=== PATIENT | female | born 1955 | race Caucasian/White ===

== ENCOUNTER → 2016-12-02 | Outpatient (CLI) | payer OTHER ==
[~2016-12-02] MED LIST: CHOL400T PO; FISHOIL PO; FRN; LISI-461 PO; MELO15TA4 PO; METF850T PO; SYN75 PO
[2016-12-02 13:55] LABS: ESTIMATED AVERAGE GLUCOSE 148 mg/dl; HA1C FLAG Normal (Normal)
[2016-12-02 14:13] LABS: BLOOD UREA NITROGEN 15 mg/dl (7-18); BUN/CREATININE RATIO 14.5 (10-20); CALCIUM 9.3 mg/dl (8.5-10.1); CARBON DIOXIDE 28 mmol/L (21-32); CHLORIDE 103 mmol/L (98-107); GLUCOSE 172 mg/dl (70-99); POTASSIUM 4.2 mmol/L (3.5-5.1); SODIUM 140 mmol/L (136-145)
== END | disposition home or self-care (01) ==
LOC: C.LABPVFM 10:54
PROVIDERS: ATTEND Family Medicine
DX: E11.9 Type 2 diabetes mellitus without complications (principal)

== ENCOUNTER → 2017-06-15 | Outpatient (CLI) | payer OTHER ==
--- NOTE | 2017-06-15 13:09 | MAMMOGRAPHY REPORT ---
BILATERAL DIGITAL SCREENING MAMMOGRAM WITH CAD: 06/15/2017 CLINICAL HISTORY: Routine screening. Patient has no complaints. TECHNIQUE: Bilateral CC, MLO and XCCL views were obtained. Current study was also evaluated with a C omputer Aided Detection (CAD) system. COMPARISON: Comparison is made to exams dated: 06/12/2016 mammogram, 05/07/2015 mammogram, 04/02/2014 m ammogram, 03/08/2013 mammogram, 03/07/2012 mammogram, and 03/04/2011 mammogram - [facility] enter. BREAST COMPOSITION: The tissue of both breasts is heterogeneously dense, which may obscure small mas ses. FINDINGS: There are scattered and grouped benign-appearing microcalcifications in each breast, which are stable compared to prior mammograms. There are also a few benign round calcifications. However , there is a possible new faint cluster of microcalcifications in the 9:00 middle to anterior right b reast, for which additional spot magnification views are recommended. No other suspicious mass, architectural distortion or developing asymmetry is seen bilaterally. IMPRESSION: ACR BI-RADS CATEGORY 0: INCOMPLETE EVALUATION: NEED ADDITIONAL IMAGING EVALUATION The possible new faint cluster of microcalcifications in the 9:00 right breast needs additional evalu ation. The patient will be called to schedule an appointment. Approximately 10% of breast cancers are not detected with mammography. A negative mammographic report should not delay biopsy if a clinically suggestive mass is present. Elisa Allan M.D. ay/:06/15/2017 12:03:15 Cloth Printing Inspector: Shirley SUAREZ(Peter)(Anne)(BD), [facility] letter sent: Addl Imaging 0 BI-RADS Code: ACR BI-RADS Category 0: Incomplete Evaluation: Need Additional Imaging Evaluation
== END | disposition home or self-care (01) ==
LOC: C.MAMM 09:27
PROVIDERS: ATTEND Family Medicine
DX: R92.0 Mammographic microcalcification found on diagnostic imaging of breast (principal)

== ENCOUNTER → 2017-06-22 | Outpatient (CLI) | payer OTHER ==
--- NOTE | 2017-06-22 13:56 | MAMMOGRAPHY REPORT ---
UNILATERAL RIGHT DIGITAL DIAGNOSTIC MAMMOGRAM: 06/22/2017 CLINICAL HISTORY: Callback from screening mammography for a possible grouping of microcalcifications in the right breast. TECHNIQUE: Spot magnification right CC and ML views were obtained. COMPARISON: Comparison is made to exams dated: 06/15/2017 mammogram, 06/12/2016 mammogram, 05/07/2015 ma mmogram, 04/02/2014 mammogram, 03/08/2013 mammogram, and 03/07/2012 mammogram - [facility] [address] nter. BREAST COMPOSITION: The tissue of the right breast is heterogeneously dense, which may obscure small masses. FINDINGS: There is faint grouping of punctate microcalcifications in a linear distribution in the la teral, middle to anterior right breast, best seen on the spot magnification CC view. This grouping o f microcalcifications measures 4 mm in length. No obvious associated mass or architectural distortio n. They are thought to project superiorly based on the spot magnification ML view. They are indeter minate and further evaluation with a stereotactic guided biopsy is recommended. No other suspicious grouping or clustered microcalcifications are seen. IMPRESSION: ACR BI-RADS CATEGORY 4B: INTERMEDIATE SUSPICION FOR MALIGNANCY Right breast stereotactic guided biopsy is recommended for a faint 4 mm grouping of punctate microcal cifications in a linear distribution in the lateral, middle to anterior breast. These results and recommendations were discussed with the patient at the time of the exam. She jeana rocha scheduled the biopsy prior to leaving our department. Approximately 10% of breast cancers are not detected with mammography. A negative mammographic report should not delay biopsy if a clinically suggestive mass is present. Elisa Allan M.D. ay/:06/22/2017 13:03:08 Orange Grower: Sadaf HURTADO)(Anne), [facility] letter sent: Abnormal 4/5 BI-RADS Code: ACR BI-RADS Category 4B: Intermediate Suspicion For Malignancy
== END | disposition home or self-care (01) ==
LOC: C.MAMM 10:06
PROVIDERS: ATTEND Family Medicine
DX: R92.0 Mammographic microcalcification found on diagnostic imaging of breast (principal)

== ENCOUNTER → 2017-06-28 | Outpatient (CLI) | payer OTHER ==
--- NOTE | 2017-06-28 13:33 | Discharge Instructions ---
Discharge Instructions Procedure Procedure Date: Jun 28, 2017. Reason for visit: Right Calcs. Discharge Discharge Date: Jun 28, 2017. Discharge Diagnosis: post right breast stereotactic guided biopsy Medications Restart Stopped Medication(s): May restart Meloxicam today Instructions Activity Recommendations: Additional Limitations (see below) Return to School/Work: no limitations Recommended Home Diet: No Limitations Provider Instructions: ACTIVITY RECOMMENDATIONS: * No lifting, pushing, pulling or exercising the affected side for three days. RETURN TO SCHOOL/WORK: * You may return to work/school after the procedure, but do not perform any strenuous activities for 24 to 48 hours. MEDICATIONS: * Tylenol (two 325 mg) every four to six hours if needed for mild pain (if not allergic to Tylenol). DIET: * Resume previous diet. SPECIAL CARE INSTRUCTIONS: * Keep biopsy site dry for 24 hours. May shower after 24 hours, but do not soak (bathe) incision. * May remove Tegaderm (plastic patch) tomorrow AFTER showering. * Leave the steri-strips on for one week. Allow the steri-strips to fall off by themselves. If not off after one week, you may remove them. You may place a Bandaid crosswise over the strips, if desired. * Apply ice 10 minutes on and 10 minutes off as needed. * Wear a bra at bedtime to sleep more comfortably for 2-3 days. * Your referring physician should have the results after approximately 5 to 7 business days. * Call for unusual bleeding, fever, drainage, etc or if you have any questions call [phone] during normal business hours or after hours call Dr Allan, . FOLLOW UP VISIT: Follow-up with Referring Physician as scheduled. Allergies Coded Allergies: Nitrofurantoin (Verified Allergy, Severe, ANAPHYLAXIS, 02/12/14) Sulfa Drugs (Verified Allergy, Severe, HIVES, 02/12/14) Adhesives (Verified Allergy, Intermediate, skin peels, 03/08/14) Penicillins (Verified Allergy, Unknown, HIVES, VOMITING, 02/12/14) Rin Beebe Recommendations: Call your doctor if: * Temperature above 101 degrees * Pain not relieved by pain medicine ordered * There is increased drainage or redness from any incision * You have any unanswered questions or concerns. Your Doctors Instructions noted above were prepared by provider Elisa Allan. Patient Signature Section: Patient Instructions Signature Page Zhanna De Jesus Patient (or Guardian) Signature/Date: I have read and understand the instructions given to me by my caregivers. Caregiver/RN/Doctor Signature/Date: The above-named patient and/or guardian has received patient instructions on this date. + Original Patient Signature Page (only) stays with chart. Please make copy for patient.
--- NOTE | 2017-06-28 14:32 | MAMMOGRAPHY REPORT ---
STEREOTACTIC GUIDED BIOPSY RIGHT BREAST: 06/28/2017 CLINICAL HISTORY: Indeterminate linear punctate microcalcifications in the 6:00 to 7:00 anterior righ t breast. Patient presented for stereotactic guided biopsy. COMPARISON: Comparison is made to exams dated: 06/22/2017 mammogram, 06/15/2017 mammogram, 06/12/2016 gurmeet mogram, 05/07/2015 mammogram, 04/02/2014 mammogram, and 03/08/2013 mammogram - [facility]. PATIENT CONSENT: After explaining the risks, benefits and alternatives of the procedure to the zachary valente, informed consent was obtained both verbally and in writing. Specific risks include: Bleeding, inf ection, puncture of adjacent structure, pain, nontarget biopsy, sampling error, metal allergy and med ication reaction. PROCEDURE DESCRIPTION: A time-out was performed and the right breast was confirmed as the site of bio psy. The patient was placed prone on the stereotactic biopsy table and the breast was placed in CC fr om below compression. A supervisor boat outfitting image was obtained that demonstrated the clustered microcalcifications in question. They are amenable to sterotactic biopsy. Then +15 and -15 stereo pair images were obt ained. The calcifications were targeted utilizing the coordinates obtained by the computer. The skin was prepped with Betadine. 1% Lidocaine with and without epinipherine was administered as local anes thesia. A small skin incision was made. Through the incision, the needle was inserted to the depth d etermined by the computer. 11 samples were obtained using a [employer] 9-gauge vacuum-assisted biops y device. The specimen radiograph demonstrated several operations support representative microcalcifications, therefore, a metallic marker was placed at the biopsy site. There was no immediate complication. Hemostasis was achieved after several minutes of manual compression. The samples were sent to pathology in two gaby ropriately labeled containers, "with calcifications" and "without calcifications". All of the samples were obtained from the same single biopsy site. Postprocedure CC and ML views of the right breast were obtained. There is a new dumbbell-shaped met allic biopsy marker and no significant hematoma in upper outer anterior right breast, at the site of the biopsied linear punctate microcalcifications. IMPRESSION: STEREOTACTIC GUIDED BIOPSY Status post right breast stereotactic guided biopsy of linear punctate microcalcifications in the upp er outer anterior right breast, with biopsy marker placed at the site. The patient will receive notification of the biopsy results from her referring physician. Elisa Allan M.D. ay/:06/28/2017 13:41:41 Attending Technologist: Meg Reagan RT(R)(M), [facility] Vascular Surgeon: Candida Chavarria RT(R)(M), [facility]
--- NOTE | 2017-06-28 14:32 | MAMMOGRAPHY REPORT ---
UNILATERAL RIGHT DIGITAL DIAGNOSTIC MAMMOGRAM: 06/28/2017 CLINICAL HISTORY: Status post right breast stereotactic guided biopsy of linear punctate microcalcifi cations in the upper outer anterior right breast. Please refer the report from right breast stereotactic biopsy performed at the same time for full det ail. IMPRESSION: POST PROCEDURE IMAGING FOR MARKER PLACEMENT Please refer the report from right breast stereotactic biopsy performed at the same time for full det ail. Approximately 10% of breast cancers are not detected with mammography. A negative mammographic report should not delay biopsy if a clinically suggestive mass is present. Elisa Allan M.D. ay/:06/28/2017 13:42:21 Attending Technologist: Meg Reagan RT(R)(M), [facility] Linux System Engineer: Candida Chavarria RT(R)(M), [facility] BI-RADS Code: Post Procedure Imaging For Marker Placement
== END | disposition home or self-care (01) ==
LOC: C.MAMM 12:21
PROVIDERS: ATTEND Family Medicine
DX: R92.0 Mammographic microcalcification found on diagnostic imaging of breast (principal); D24.1 Benign neoplasm of right breast

== ENCOUNTER → 2017-07-27 | Outpatient (CLI) | payer OTHER ==
[2017-07-27 13:13] LABS: ESTIMATED AVERAGE GLUCOSE 151 mg/dl; HA1C FLAG Normal (Normal)
[2017-07-27 13:40] LABS: BLOOD UREA NITROGEN 14 mg/dl (7-18); BUN/CREATININE RATIO 15.8 (10-20); CALCIUM 10.1 mg/dl (8.5-10.1); CARBON DIOXIDE 28 mmol/L (21-32); CHLORIDE 102 mmol/L (98-107); GLUCOSE 155 mg/dl (70-99); POTASSIUM 4.3 mmol/L (3.5-5.1); SODIUM 137 mmol/L (136-145)
== END | disposition home or self-care (01) ==
LOC: C.LABPVFM 09:53
PROVIDERS: ATTEND Family Medicine
DX: E03.9 Hypothyroidism, unspecified (principal); E11.9 Type 2 diabetes mellitus without complications

== ENCOUNTER → 2017-12-15 | Outpatient (CLI) | payer OTHER | END | disposition home or self-care (01) | LOC: C.LABPVFM 09:31 | PROVIDERS: ATTEND Family Medicine | DX: N39.0 Urinary tract infection, site not specified (principal) ==

== ENCOUNTER → 2018-01-28 | Outpatient (CLI) | payer OTHER ==
[~2018-01-28] MED LIST changes: +MELO-84 PO; -MELO15TA4 PO
[2018-01-28 12:46] LABS: HEMOGLOBIN A1C 7.3 % (4.5-5.6)
[2018-01-28 12:58] LABS: ALBUMIN 3.9 gm/dl (3.4-5.0); ALT/SGPT 21 U/L (12-78); BLOOD UREA NITROGEN 14 mg/dl (7-18); CALCIUM 9.1 mg/dl (8.5-10.1); CARBON DIOXIDE 26 mmol/L (21-32); CHOLESTEROL 228 mg/dl (0-200); CREATININE 0.78 mg/dl (0.60-1.20); GLUCOSE 105 mg/dl (70-99); POTASSIUM 4.2 mmol/L (3.5-5.1); SODIUM 139 mmol/L (136-145)
[2018-01-28 13:01] LABS: ALKALINE PHOSPHATASE 84 U/L (45-117); AST/SGOT 10 U/L (15-37); LDL CHOLESTEROL CALCULATED 140 mg/dl; TOTAL PROTEIN 7.6 gm/dl (6.4-8.2)
== END | disposition home or self-care (01) ==
LOC: C.LABPVFM 08:05
PROVIDERS: ATTEND Family Medicine
DX: E03.9 Hypothyroidism, unspecified (principal)

== ENCOUNTER → 2018-06-23 | Outpatient (CLI) | payer OTHER ==
--- NOTE | 2018-06-23 15:12 | MAMMOGRAPHY REPORT ---
BILATERAL DIGITAL SCREENING MAMMOGRAM TOMOSYNTHESIS WITH CAD: 06/23/2018 CLINICAL HISTORY: Routine screening. Patient has no complaints. TECHNIQUE: The study was acquired using full field digital technology and interpreted from soft copy. Breast tomosynthesis in addition to standard 2D mammography was performed. Current study was also ev aluated with a Computer Aided Detection (CAD) system. COMPARISON: Comparison is made to exams dated: 06/15/2017 mammogram, 06/22/2017 mammogram, 06/12/2016 g[facility]meet mogram, 05/07/2015 mammogram, 04/02/2014 mammogram, and 06/28/2017 stereotactic biopsy - [facility]. BREAST COMPOSITION: The tissue of both breasts is heterogeneously dense, which may obscure small mass es. FINDINGS: No suspicious masses, calcifications, or areas of architectural distortion are noted in either breast . There has been no significant interval change compared to prior exams. Bilateral benign-appearing calcifications are not significantly changed. A biopsy clip is again noted within the right upper ou ter quadrant from prior benign stereotactic biopsy. Nodular focal asymmetry in the left posterior br east at approximately 12:00 is stable compared to multiple prior exams including the cc view from the 2010 exam and considered benign given long-term stability. IMPRESSION: ACR BI-RADS CATEGORY 2: BENIGN There is no mammographic evidence of malignancy. A 1 year screening mammogram is recommended.( 019) The patient will receive written notification of the results. Some breast cancers are not detected with mammography. A negative mammographic report should not ethel y biopsy if a clinically suggestive mass is present. Melissa Blancas M.D. ah/:06/23/2018 12:42:14 Resource Specialist Teacher: Meg Nguyen RT(R)(M), [facility] letter sent: Normal 1/2 BI-RADS Code: ACR BI-RADS Category 2: Benign
== END | disposition home or self-care (01) ==
LOC: C.MAMM 09:34
PROVIDERS: ATTEND Family Medicine
DX: Z12.31 Encounter for screening mammogram for malignant neoplasm of breast (principal)

== ENCOUNTER 2023-12-20 08:26 | Observation (INO) ==
--- NOTE | 2023-11-19 15:03 | PAT Medication Instructions ---
Medication Instructions Date of Service November 19, 2023 Home Medications Medication Instructions Recorded daowdafhrl-bqnvhjm-kknlpsoq 50 1 - 2 cap PO UD PRN Migraine 03/27/ mg-325 mg-40 mg capsule Headache #30 caps insulin glargine 100 unit/mL (3 30 unit (0.3 mL) subcut HS #15 mL 07/16/23 mL) subcutaneous pen (Lantus Solostar U-100 Insulin) dapagliflozin propanediol 5 mg 5 mg PO QAM #30 tabs 11/04/23 tablet (Farxiga) acetaminophen 500 mg tablet (Acetaminophen Extra Strength) 1,000 - 1,500 mg PO TID lgviqbwahy-khxhltr-ktmslajx 50 mg-325 mg-40 mg capsule 1 - 2 cap PO UD PRN insulin glargine 100 unit/mL (3 mL) subcutaneous pen (Lantus Solostar U-100 Insulin) 30 unit (0.3 mL) subcut HS dapagliflozin propanediol 5 mg tablet (Farxiga) 5 mg PO QAM Cbd Liquid Extract 1 dose PO HS Cbd W/ Turmeric 1 dose PO QAM amlodipine 10 mg tablet 10 mg PO QPM atorvastatin 20 mg tablet 20 mg PO QPM bisoprolol fumarate 5 mg tablet 5 mg PO QAM levothyroxine 75 mcg tablet 75 mcg PO QAM lisinopril 20 mg tablet 20 mg PO QAM meloxicam 15 mg tablet 15 mg PO QAM metformin 1,000 mg tablet 1,000 mg PO BID omega-3s 800 mg-dha 186.67 mg-epa 560 mg-fish-vit D3 8.33 mcg capsule (De3 Dry Eye [place] Benefits) 1 cap PO QAM psyllium husk 0.4 gram capsule (Metamucil) 0.4 g PO BID STOP 3 days before surgery dapagliflozin propanediol 5 mg tablet (Farxiga) 5 mg PO QAM ASK your surgeon for instructions meloxicam 15 mg tablet 15 mg PO QAM STOP taking 2 weeks before surgery (or as soon as possible if surgery is within 2 weeks) Cbd W/ Turmeric 1 dose PO QAM omega-3s 800 mg-dha 186.67 mg-epa 560 mg-fish-vit D3 8.33 mcg capsule (De3 [employer] [place] Benefits) 1 cap PO QAM DO NOT take the morning of surgery ebjcblbfff-bvpvoao-gsxhbbbf 50 mg-325 mg-40 mg capsule 1 - 2 cap PO UD PRN lisinopril 20 mg tablet 20 mg PO QAM metformin 1,000 mg tablet 1,000 mg PO BID psyllium husk 0.4 gram capsule (Metamucil) 0.4 g PO BID Take morning of surgery With a small sip of water, OTHERWISE NOTHING TO EAT OR DRINK AFTER MIDNIGHT: acetaminophen 500 mg tablet (Acetaminophen Extra Strength) 1,000 - 1,500 mg PO TID bisoprolol fumarate 5 mg tablet 5 mg PO QAM levothyroxine 75 mcg tablet 75 mcg PO QAM Take evening before surgery acetaminophen 500 mg tablet (Acetaminophen Extra Strength) 1,000 - 1,500 mg PO TID insulin glargine 100 unit/mL (3 mL) subcutaneous pen (Lantus Solostar U-100 Insulin) 30 unit (0.3 mL) subcut HS Cbd Liquid Extract 1 dose PO HS amlodipine 10 mg tablet 10 mg PO QPM atorvastatin 20 mg tablet 20 mg PO QPM metformin 1,000 mg tablet 1,000 mg PO BID psyllium husk 0.4 gram capsule (Metamucil) 0.4 g PO BID Other Notes If you have any questions please call us at [phone] or [phone] or or [phone]
--- NOTE | 2023-11-26 08:20 | Anesthesiology Consultation ---
Date of Service November 26, 2023 Assessment & Plan (1) Encounter for pre-operative examination: - check BSG am DOS. - Outpatient joint assessment: Patient is currently scheduled for inpatient pathway. If re-evaluated and patient/surgeon requests outpatient pathway, patient is not recommended candidate for outpatient joint program from anesthesia standpoint. Chart Review Chart Review: Acceptable Risk for Surgery and Patient seen in Pre Admission Testing Teaching & Discussion Pre-Anesthesia Teaching/Discussion Notes: Instructed NPO after midnight before surgery, except medications with 15 cc of water. Medication instructions provided according to the PAT guidelines. History Surgery Operation Date: 12/20/23 09:05 Proposed Procedures p Right Total Shoulder Arthroplasty Reverse - Aaron Mayer, Height/Weight Height: 4 ft 11 in Weight: 100.2 kg Allergies Allergy/AdvReac Type Severity Reaction Status Date / Time nitrofurantoin Allergy Severe Anaphylaxis Verified 11/19/23 09:07 Sulfa (Sulfonamide Allergy Severe hives/anaph Verified 11/19/23 09:07 Antibiotics) ylaxis adhesive Allergy Intermediate skin peels Verified 11/19/23 09:07 doxycycline Allergy Intermediate hives and Verified 11/19/23 09:07 vomitting Penicillins Allergy Unknown HIVES, Verified 11/19/23 09:07 VOMITING Medications Home Medications Medication Instructions Recorded Confirmed Last Taken acetaminophen 500 mg tablet 1,000 - 1,500 mg PO TID 09/20/18 11/19/23 09/26/18 08:00 (Acetaminophen Extra Strength) blood sugar diagnostic (OneTouch #10 ea 05/23/19 08/24/23 Unknown Ultra Blue Test Strip) lancets 33 gauge (OneTouch Delica #100 ea 05/23/19 08/24/23 Unknown Lancets) sxwbjwyloh-eytjxqf-gsabsvju 50 1 - 2 cap PO UD PRN Migraine 03/27/20 11/19/23 Unknown mg-325 mg-40 mg capsule Headache #30 caps insulin glargine 100 unit/mL (3 30 unit (0.3 mL) subcut HS #15 mL 07/16/23 11/19/23 Unknown mL) subcutaneous pen (Lantus Solostar U-100 Insulin) dapagliflozin propanediol 5 mg 5 mg PO QAM #30 tabs 11/04/23 11/19/23 Unknown tablet (Farxiga) Cbd Liquid Extract 1 dose PO HS 11/19/23 11/19/23 Unknown Cbd W/ Turmeric 1 dose PO QAM 11/19/23 11/19/23 Unknown atorvastatin 20 mg tablet 20 mg PO QPM 11/19/23 11/19/23 Unknown bisoprolol fumarate 5 mg tablet 5 mg PO QAM 11/19/23 11/19/23 Unknown levothyroxine 75 mcg tablet 75 mcg PO QAM 11/19/23 11/19/23 Unknown lisinopril 20 mg tablet 20 mg PO QAM 11/19/23 11/19/23 Unknown meloxicam 15 mg tablet 15 mg PO QAM 11/19/23 11/19/23 Unknown metformin 1,000 mg tablet 1,000 mg PO BID 11/19/23 11/19/23 Unknown omega-3s 800 mg-dha 186.67 mg-epa 1 cap PO QAM 11/19/23 11/19/23 Unknown 560 mg-fish-vit D3 8.33 mcg capsule (De3 Dry Eye [employer] Benefits) psyllium husk 0.4 gram capsule 0.4 g PO BID 11/19/23 11/19/23 Unknown (Metamucil) amlodipine 10 mg tablet 10 mg PO QPM #90 tabs 11/24/23 Unknown Past Medical History Medical History (Updated 11/26/23 @ 08:22 by Lala Borjas PA-C) Bulging lumbar disc chronic Degenerative disc disease Diabetes mellitus, type 2 IDDM GERD (gastroesophageal reflux disease) controlled, stable per pt History of COVID-03 May 2022: cold symptoms and loss sense of smell. denies hospitalization. no current issues Hyperlipidemia Hypertension controlled, stable per pt Hypothyroidism Migraine Scoliosis Spinal stenosis Patient denies h/o stroke, seizures, heart attack, heart failure, blood clots/DVTs or blood transfusions. Exercise / Class Metabolic Activity III < 4 Walking/Shop/Light housework (shortness of breath with regular activities ongoing x 5 yrs-notes recent improvement with intentional weight loss; denies chest discomfort) Past Family History Family History Father Family history of diabetes mellitus Family hx colonic polyps Mother Family history of diabetes mellitus Sister Breast cancer Other No family history of adverse response to anesthesia Denies family history of Ovarian cancer Prostate cancer Myocardial infarction Colorectal cancer Past Surgical History Surgical History History of carpal tunnel release bilt History of colonoscopy History of eye surgery Left upper inside eye lid, stye cut out. History of right breast biopsy benign History of tonsillectomy History of tooth extraction wisdom teeth History of total abdominal hysterectomy and bilateral salpingo-oophorectomy History of total left knee replacement (TKR) History of total right knee replacement (TKR) Past Anesthesia History No Family Hx of Anesthesia Complications ("wake up earlier than expected") and Other History of PONV History of PONV (denies needing scop patch) and Hx of Motion Sickness Social History Smoking Status: Never smoker Do You Dip or Chew Tobacco: No Hx Alcohol Use: Yes Alcohol type: hard liquor alcohol intake frequency: holidays/special occasions only Hx Substance Use: Yes (cbd (full spectrum) usage daily-advised) substance use type: does not use Last Used Substance Other:: 11/18/23 Review of Systems Snoring, denies witnessed apneas. Patient denies chest pain, shortness of breath, dyspnea on exertion, fever, chills, cough, wheezing, or palpitations. Physical Exam Vital Signs Vitals BP 135/75 P 68 TEMP 98 SP02 96% on RA RESP 18 Physical Patient resting comfortably in chair in no acute distress, alert and oriented, responding appropriately throughout visit Full cervical extension range of motion without pain TMD 3.5 finger breadths Mallampati Score 2 Dentition: three crowns; denies chipped or loose teeth, caps, implants or bridges Lungs: normal respiratory effort. Good air movement, clear throughout to auscultation, no adventitious breath sounds Cardiac: regular rate and rhythm, no murmurs noted Carotid arteries: negative bruit bilat Lab Results Anesthesia Preop Results Results Anesthesia Widget: WBC 7.16 K/ul (4.8-10.8) 11/26/23 Hgb 13.9 g/dl (12.0-16.0) 11/26/23 Hct 44.7 % (37.0-47.0) 11/26/23 Plt 340 K/uL (130-400) 11/26/23 Na 139 mmol/L (136-145) 11/26/23 K 3.9 mmol/L (3.5-5.1) 11/26/23 Cl 101 mmol/L (98-107) 11/26/23 CO2 29 mmol/L (21-32) 11/26/23 BUN 13 mg/dl (6-23) 11/26/23 Creat 0.86 mg/dl (0.6-1.2) 11/26/23 Glucose Level 243 mg/dl (70-99(Fasting)) H 11/26/23 PT 10.8 Seconds (9.0-12.0) 11/26/23 PTT 28 Seconds (21-31) 11/26/23 INR 1.0 (0.9-1.1) 11/26/23 HA1c 7.3 % (4.5-5.6) H 11/26/23 Blood Type O Positive 11/26/23 Antibody Screen NEGATIVE 11/26/23 Testing Electrocardiogram Date: 11/26/23 Sinus rhythm with PACs, rate [address] and T wave abnormality Chest X-Ray Date: 11/26/23 No acute cardiopulmonary findings.
--- NOTE | 2023-12-15 07:39 | History & Physical Report ---
Date of Service December 15, 2023 Assessment & Plan (1) Rotator cuff arthropathy of right shoulder: We will proceed with a right reverse shoulder arthroplasty. Postoperatively she will be placed in a sling and kept overnight in the hospital for postop medical management. She plans to have the hospital set up home health before discharge. History of Present Illness Chief Complaint: Cuff tear arthropathy right shoulder. Primary Care Provider: Valeria Francois MD Zhanna is a pleasant 68-year-old female who has been dealing with chronic increasing right shoulder pain. She still works [employer] and should be retiring in about 2 years. 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 She has an MRI, which shows chronic rotator cuff tearing and some osteo arthritis. She has had injections, which have only given her minimal relief. She has done too extensive physical therapy. Unfortunately, she is still dealing with a lot of right shoulder pain. After failing conservative treatment, she has elected proceed with a right reverse shoulder arthroplasty. Allergies Allergy/AdvReac Type Severity Reaction Status Date / Time nitrofurantoin Allergy Severe Anaphylaxis Verified 12/13/23 08:46 Sulfa (Sulfonamide Allergy Severe hives/anaph Verified 12/13/23 08:46 Antibiotics) ylaxis adhesive Allergy Intermediate skin peels Verified 12/13/23 08:46 doxycycline Allergy Intermediate hives and Verified 12/13/23 08:46 vomitting Penicillins Allergy Unknown HIVES, Verified 12/13/23 08:46 VOMITING Home Medications Medication Instructions Recorded Confirmed Type acetaminophen 500 mg tablet 1,000 - 1,500 mg PO TID 09/20/18 12/13/23 History (Acetaminophen Extra Strength) blood sugar diagnostic (OneTouch #10 ea 05/23/19 12/13/23 History Ultra Blue Test Strip) lancets 33 gauge (OneTouch Delica #100 ea 05/23/19 12/13/23 History Lancets) nwnxcoamio-mrqqxyl-ydyyvwej 50 1 - 2 cap PO UD PRN Migraine 03/27/20 12/13/23 Rx mg-325 mg-40 mg capsule Headache #30 caps insulin glargine 100 unit/mL (3 30 unit (0.3 mL) subcut HS #15 mL 07/16/23 12/13/23 Rx mL) subcutaneous pen (Lantus Solostar U-100 Insulin) dapagliflozin propanediol 5 mg 5 mg PO QAM #30 tabs 11/04/23 12/13/23 Rx tablet (Farxiga) Cbd Liquid Extract 1 dose PO HS 11/19/23 12/13/23 History Cbd W/ Turmeric 1 dose PO QAM 11/19/23 12/13/23 History atorvastatin 20 mg tablet 20 mg PO QPM 11/19/23 12/13/23 History bisoprolol fumarate 5 mg tablet 5 mg PO QAM 11/19/23 12/13/23 History levothyroxine 75 mcg tablet 75 mcg PO QAM 11/19/23 12/13/23 History lisinopril 20 mg tablet 20 mg PO QAM 11/19/23 12/13/23 History meloxicam 15 mg tablet 15 mg PO QAM 11/19/23 12/13/23 History metformin 1,000 mg tablet 1,000 mg PO BID 11/19/23 12/13/23 History omega-3s 800 mg-dha 186.67 mg-epa 1 cap PO QAM 11/19/23 12/13/23 History 560 mg-fish-vit D3 8.33 mcg capsule (De3 Dry Eye [place] Benefits) psyllium husk 0.4 gram capsule 0.4 g PO BID 11/19/23 12/13/23 History (Metamucil) amlodipine 10 mg tablet 10 mg PO QPM #90 tabs 11/24/23 12/13/23 Rx pen needle, diabetic 32 gauge x See Rx Instructions .Route 12/07/23 12/13/23 Rx 5/32" (Unifine Pentips) .COMPLEX #100 ea Past Med/Surg History Medical History History of COVID-03 May 2022: cold symptoms and loss sense of smell. denies hospitalization. no current issues Degenerative disc disease Spinal stenosis Scoliosis Hyperlipidemia Bulging lumbar disc chronic GERD (gastroesophageal reflux disease) controlled, stable per pt Hypothyroidism Diabetes mellitus, type 2 IDDM Migraine Hypertension controlled, stable per pt Surgical History History of colonoscopy History of eye surgery Left upper inside eye lid, stye cut out. History of right breast biopsy benign History of total abdominal hysterectomy and bilateral salpingo-oophorectomy History of carpal tunnel release bilt History of total left knee replacement (TKR) History of total right knee replacement (TKR) History of tooth extraction wisdom teeth History of tonsillectomy Family History Father Family history of diabetes mellitus Family hx colonic polyps Mother Family history of diabetes mellitus Sister Breast cancer Other No family history of adverse response to anesthesia Denies family history of Ovarian cancer Prostate cancer Myocardial infarction Colorectal cancer Social History Smoking Status: Never smoker Second Hand Exposure: No; Do You Dip or Chew Tobacco: No; Tobacco Cessation Education Requested by Patient: No Hx Alcohol Use: Yes Alcohol type: hard liquor Alcohol Intake Frequency: Monthly or Less Hx Substance Use: Yes (cbd (full spectrum) usage daily-advised) Last Used Substance Other:: 11/18/23 Preferred Language: Austrian Communication Ability: Effective 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: No Beliefs That Will Affect Care: None marital status: Single Current Living Situation: Alone current occupational status: employed current occupation: [employer] How many Children do You have: 0 Other Information That Helps Us Care for You: No Feels Safe at Home: Yes Safety Concerns: Feels Safe At This Time Childhood Exposure to Second-Hand Smoke: Yes Diet: regular caffeine: Yes Dental Care, Regularly: Yes Physical Activity Frequency: 1-2 Times per Week Seatbelt Use: always Sunscreen Use: Yes Assistive Devices: Cane and Glasses Review of Systems All systems reviewed & are unremarkable except as noted in HPI & below. Physical Exam On physical examination the right shoulder, she has about 140 degrees of forward elevation and 120 degrees of abduction. She has a positive belly press test. She has 4-5 motor strength with full can testing.. Constitutional WD/WN, vitals as above Eyes PERRL, conjunctivae normal, anicteric sclerae ENMT external ear and nose normal, oropharynx normal Neck trachea midline, no thyromegaly Respiratory normal respiratory effort Cardiovascular RRR, no murmur, no edema Gastrointestinal (Abdomen) normal bowel sounds, soft, nontender, no hepatosplenomegaly Psychiatric A+Ox3, euthymic affect Results & Data Results & Data Laboratory Results . Diagnostic Findings X-rays of the right shoulder show some mild osteoarthritis. MRI of the right shoulder shows mild to moderate osteoarthritis with a chronic retracted tear of the entire subscapularis and high-grade partial-thickness tearing of the supraspinatus. There is significant cuff atrophy as well.. PG Care Time/CCT Total # of Minutes Spent Total Time Spent with Patient: Total time spent is greater than 50% in coordination of care (as documented) at patient's floor/unit and/or counseling patient: Coding Level of Care Code None Diagnoses Rotator cuff arthropathy of right shoulder M12.811
[~2023-12-20 08:26] MED LIST changes: +BUPIVACAINE 0.5 % 5 MG/1 ML PF 10ML VIAL ONE; -CHOL400T PO; -FISHOIL PO; -FRN; -LISI-461 PO; -MELO-84 PO; -METF850T PO; -SYN75 PO
[2023-12-20] MEDS ORDERED: LIDOCAINE 2% 2 ML VIAL/AMP(20MG/ML) INFIL ONE (08:39)
[2023-12-20] MEDS ORDERED: ONDANSETRON INJ 2 MG/ML 2 ML VIAL ONE (08:39)
[2023-12-20] MEDS ORDERED: fentaNYL citrate PF 100 MCG/2 ML VIAL ONE (08:39)
[2023-12-20] MEDS ORDERED: PROPOFOL IV EMULSION 10 MG/ML 20 ML VIAL IV ONE (08:39)
[2023-12-20] MEDS ORDERED: MIDAZOLAM HCL 1 MG/ML 2ML VIAL ONE (08:39)
[2023-12-20] MEDS: LR 60ML/HR IV SCH (09:02)
[2023-12-20] MEDS: ACETAMINOPHEN 500 MG TAB PO SCH ×2 (09:02→13:44)
[2023-12-20] MEDS: FAMOTIDINE 20 MG TAB PO SCH (09:03)
[2023-12-20] MEDS: GABAPENTIN 300 MG CAP PO SCH (09:03)
[2023-12-20] MEDS: dexAMETHasone**PF** 10 MG/ML VIAL IV SCH (09:05)
[2023-12-20] MEDS: LR 15ML/HR IV SCH (09:05)
--- NOTE | 2023-12-20 09:08 | History & Physical Bridge Note ---
Date of Service December 20, 2023 History & Physical Bridge Note I have examined the patient, reviewed the History & Physical and in the interval since the performance of the History & Physical I have noted the following changes of clinical significance: no changes noted
[2023-12-20] MEDS ORDERED: PROMETHAZINE HCL 6.25 MG in SODIUM CHLORIDE 0.9% 50 ML IV PRN (09:18)
[2023-12-20] MEDS ORDERED: fentaNYL citrate PF 100 MCG/2 ML VIAL IV PRN (09:18)
[2023-12-20] MEDS ORDERED: ePHEDrine sulfate 50 MG/ML AMP IV PRN (09:18)
[2023-12-20] MEDS ORDERED: ATROPINE SULFATE 0.1 MG/ML 10ML SYR IV PRN (09:18)
[2023-12-20] MEDS ORDERED: Nursing to Pharmacy Communication SCH (09:30)
[2023-12-20] MEDS: ceFAZolin 2,000 MG/15 ML IV PUSH IV ONE (09:53)
[2023-12-20] MEDS: TRANEXAMIC ACID 1,000 MG **IV Pre-op IV SCH (10:00)
[2023-12-20] MEDS: ceFAZolin 2000MG 2,000 MG/15 ML SYR IV SCH ×2 (10:10→18:41)
[2023-12-20] MEDS ORDERED: ROCURONIUM BROMIDE 10 MG/ML 5 ML VIAL IV ONE (10:32)
[2023-12-20] MEDS: ORTHO JOINT ANESTHETIC ONE (10:47)
[2023-12-20] MEDS: ROPIV 0.5% 246mg, Ketorolac 30mg, EPINEPHrine 0.5mg in NSS INFIL SCH (10:47)
[2023-12-20] MEDS ORDERED: ePHEDrine sulfate 50 MG/ML AMP ONE (11:05)
[2023-12-20] MEDS: TRANEXAMIC ACID 1,000 MG **IV Intra-op IV SCH (11:11)
[2023-12-20] MEDS ORDERED: SUGAMMADEX SODIUM 200 MG/2 ML VIAL IV ONE (11:11)
--- NOTE | 2023-12-20 11:33 | Operative Report ---
PG Post Operative Report Pre & Post Diagnosis Operation Date: 12/20/23 10:05 Pre-Op Diagnosis: Cuff tear arthropathy the right shoulder Post-Op Diagnosis: Cuff tear arthropathy the right shoulder I identified the patient and participated in the time-out.: Yes Procedure Operation Date: 12/20/23 10:05 Actual Procedures p Right Reverse Total Shoulder Arthroplasty(Right) - Aaron Mayer DO Surgeon Aaron Mayer DO Strings Teacher Aaron Greene PA-C Estimated Blood Loss 100 Findings Consistent with Post-Op Diagnosis Specimens Right humeral head Description of Procedure Implants used: I used a Biomet Comprehensive reverse total shoulder arthroplasty system with a size 11 press fit micro humeral stem, a +6 offset humeral tray and a +3 retentive humeral bearing, a 25 mm baseplate with a 6.5 mm central screw and superior and inferior locking screws, and a size 36 mm eccentric glenosphere. Zhanna arrived at [facility] for the above procedure. She was seen in the preoperative holding area and the operative extremity was identified and signed. She was given a preoperative antibiotic, TXA, and an interscalene nerve block. She was taken back to the operating room, laid on table in supine position, and put under general anesthesia. She was then put into the beachchair position. The shoulder was then prepped and draped in sterile fashion. A timeout was done and the patient and the operative extremity was properly identified. A deltopectoral approach was used. Dissection was taken down through the fascia and the deltoid was retracted laterally and the conjoined tendon was retracted medially. The anterior shoulder was exposed. The biceps tendon was chronically torn. The subscapularis was then directly released off the lesser tuberosity with a peel technique. The inferior capsule was released and the humeral head was dislocated. A canal finding reamer was sent down the center of the humeral canal. Sequential reaming up to a size 11 reamer was done. Off that reamer, a proximal humeral resection guide was placed. The proximal humerus was resected at 135 of inclination and 25 of retroversion. Osteophytes were then removed and the glenoid was exposed. Time was spent doing a complete capsular and labral release. The glenoid guide was then placed in the inferior aspect of the glenoid. A 3.2 mm Steinmann pin was then placed into the glenoid vault at 10 of inclination. The glenoid baseplate was then reamed. The final size 25 mm baseplate was then impacted in the place. A 6.5 mm central screw was then placed followed by superior and inferior locking screws. A 36 mm eccentric glenosphere was then impacted into place. Surrounding soft tissues were then injected with 100 cc an orthopedic pain control cocktail. The proximal humerus was then exposed. Sequential broaching of the humerus up to a size 11 broach was done. Off that broach a +6 offset and +3 retentive humeral tray was trialed. The shoulder was then reduced, brought through a full range of motion, and felt to be stable. The shoulder was then dislocated and the broach was removed. The final size 11 micro press-fit humeral stem was then impacted into place. A +3 retentive humeral bearing was then snapped onto a +6 offset humeral tray. The humeral tray was then impacted onto the humeral stem. The shoulder was once again reduced, brought through a full range of motion, and felt to be stable. The subscapularis was retracted and poor quality. The subscapularis was unable to be repaired. A dilute betadyne lavage was then done for 3 minutes. The joint was then irrigated with normal saline solution. Hemostasis was obtained. The interval was closed with 2-0 Vicryl suture. The skin was then closed with 2-0 Vicryl and fredy. A Silverlon dressing was placed and the arm was rested in a regular arm sling. She was then extubated and transferred to a hospital bed. She taken to the postanesthesia care unit in stable condition. She tolerated the procedure well. Aaron Greene PA-C, was present for the entire procedure. He was critical for patient positioning, prepping, draping, retraction exposure, wound closure and application of sterile dressing. I attest to the content of the Intraoperative Record and any orders documented therein. Any exceptions are noted below.
[2023-12-20] MEDS ORDERED: ESMOLOL HCL INJ 10 MG/ML 10ML VIAL IV ONE (11:39)
[2023-12-20] MEDS ORDERED: LABETALOL HCL IV 5 MG/ML 20ML IV ONE (11:39)
[2023-12-20] MEDS: ONDANSETRON INJ 2 MG/ML 2 ML VIAL IV PRN (11:48)
--- NOTE | 2023-12-20 12:05 | XRay Report ---
XR shoulder RT min 2V routine CLINICAL HISTORY: Post shoulder surgery COMPARISON: MRI of the right shoulder August 18, 2023. Right shoulder radiographs June 17, 2023. FINDINGS: Alignment of the total right shoulder arthroplasty is anatomic. There is no periprosthetic fracture or unexpected radiopaque foreign body. There are skin fredy. IMPRESSION: Expected findings following total right shoulder arthroplasty. ACT 112: Negative or not required by law. Electronically signed by: Dalton Moncada M.D. 12/20/2023 12:03 PM
--- NOTE | 2023-12-20 12:15 | Anesthesiology Progress Note ---
Date of Service December 20, 2023 Anesthesia Post Procedure Vital Signs Vital Signs: Temp Pulse Resp BP BP Pulse Ox O2 Del Method 12/20/23 12:00 36.2 C L 71 16 172/79 H 97 Oxymask 12/20/23 11:50 65 16 174/82 H 97 Oxymask 12/20/23 11:40 70 18 173/75 H 97 Oxymask 12/20/23 11:34 36.0 C L 90 18 174/92 H 99 Oxymask 12/20/23 08:54 36.5 C 74 20 155/96 H 96 Room Air O2 Flow Rate 12/20/23 12:00 5 12/20/23 11:50 5 12/20/23 11:40 5 12/20/23 11:34 5 12/20/23 08:54 Pain Intensity Right Shoulder: Pain Intensity: 2 Transfer of Care Handoff Completed per policy Notes Mental Status: alert / awake / arousable Patient Amnestic to Procedure: Yes Nausea / Vomiting: adequately controlled Pain: adequately controlled Airway Patency, RR, SpO2: stable & adequate BP & HR: stable & adequate Hydration State: stable & adequate Anesthetic Complications: no major complications apparent
[2023-12-20] MEDS ORDERED: NALOXONE HCL 0.4 MG/1 ML VIAL/CARP IV PRN (13:03)
[2023-12-20] MEDS ORDERED: MAGNESIUM HYDROXIDE SUSP 30 ML UDC PO PRN (13:03)
[2023-12-20] MEDS ORDERED: PHARMACY GLYCEMIC MGMT CONSULT PRN (13:03)
[2023-12-20] MEDS ORDERED: oxyCODONE HCL IR 5 MG TAB (IMMEDIATE RELEASE) PO PRN (13:03)
[2023-12-20] MEDS ORDERED: METOCLOPRAMIDE HCL INJ 5 MG/ML 2 ML VIAL IV PRN (13:03)
[2023-12-20] MEDS ORDERED: bisacodyL 10 MG SUPP PR PRN (13:03)
[2023-12-20] MEDS ORDERED: ONDANSETRON INJ 2 MG/ML 2 ML VIAL IV PRN (13:03)
[2023-12-20] MEDS ORDERED: HYDROmorphone INJ 0.5 MG/0.5 ML SYR IV PRN (13:03)
--- NOTE | 2023-12-20 13:40 | Pharmacy Report ---
Pharmacy Glycemic Short Note 2 - Date of Service December 20, 2023 - Glycemic Short BSG Results (Last 24 hours): 12/20/23 12/20/23 08:52 11:36 POC Glucose 102 H 135 H OUTPATIENT ANTIDIABETIC REGIMEN: * Metformin 1000 mg PO BIDM * Farxiga 5 mg PO AM * Lantus 30 units SC HS * HbA1c: 7.3% (11/26/23) ASSESSMENT: * 68 yo F admitted postoperatively today following a right reverse total shoulder arthroplasty. Pharmacy has been consulted to assist with inpatient glycemic management. Patient is a Type 2 diabetic as an outpatient. Please refer to outpatient regimen and most recent HbA1c above. * Preop BSG was 102 mg/dL. Postop BSG was 135 mg/dL. Did receive 10 mg of IV Dexamethasone preop. No further steroids ordered. Ordered a T2DM diet, will follow to see if patient tolerates in immediate postoperative period. Other stressors stable. * Will reduce home Lantus dose by 30% and continue HS dosing time. Novolog will be started based on weight/stress of 2-3 until effects of steroids wears off. PLAN FOR INPATIENT GLYCEMIC CONTROL: * Hold outpatient oral diabetes medications * Basal insulin * Lantus 20 units SC HS * Bolus insulin * NovoLog per scale ACHS or Q6hrs while NPO * Goal Range: Low 110 mg/dL - High 140 mg/dL * Correction Factor: 20 mg/dL/unit * Nutritional / Prandial insulin per carb ratio of 1 unit per 7 grams CHO consumed
[2023-12-20] MEDS: SODIUM CHLORIDE 0.9% 1,000 ML IV SCH (13:43)
[2023-12-20] MEDS ORDERED: DEXTROSE 50% 50 ML SYRINGE IV PRN (13:45)
[2023-12-20] MEDS ORDERED: GLUCOSE 10 TAB/TUBE PO PRN (13:45)
[2023-12-20] MEDS ORDERED: CARBOHYDRATES FOR HYPOGLYCEMIA PO PRN (13:45)
[2023-12-20] MEDS ORDERED: GLUCOSE 40% GEL 15 GM TUBE PO PRN (13:45)
[2023-12-20] MEDS ORDERED: GLUCAGON FOR INJ 1 MG VIAL IM PRN (13:45)
[2023-12-20] MEDS: INSULIN ASPART PER UNIT CHARGE SC SCH (14:23)
[2023-12-20] MEDS: KETOROLAC TROMETHAMINE 15 MG/ML VIAL IV SCH (14:27)
[2023-12-20] MEDS: ATORVASTATIN 20 MG TAB PO SCH (20:28)
[2023-12-20] MEDS: DOCUSATE SODIUM 100 MG CAP PO SCH (20:28)
[2023-12-20] MEDS: SENNA 8.6 MG TAB PO SCH (20:28)
[2023-12-20] MEDS: amLODIPine BESYLATE 5 MG TAB PO SCH (20:29)
[2023-12-20] MEDS: LANTUS PER UNIT CHARGE SC SCH (20:41)
[2023-12-21] MEDS: LEVOTHYROXINE SODIUM 75 MCG TABLET PO SCH (05:29)
[2023-12-21] MEDS: BISOPROLOL FUMARATE 5 MG TAB PO SCH (05:30)
--- NOTE | 2023-12-21 06:38 | Orthopedic Progress Note ---
Date of Service December 21, 2023 Assessment & Plan (1) Status post reverse total replacement of right shoulder: Overall she is doing very well. She is not having much pain in the right shoulder. She will be seen by physical therapy today for ambulation and range of motion exercises. She will be weaned off her oxygen. As long as her saturations remain at or above 90% she can be discharged home. She will follow- up with orthopedics in 2 weeks. Brii Chao was seen and examined at bedside this morning. Overall she is doing fairly well. She is not having much pain in the right shoulder. She has been up and ambulating. She is on 1 L of oxygen. She has no other complaints.. Review of Systems All systems reviewed & are unremarkable except as noted in HPI & below. Physical Exam On physical examination of the right shoulder, the dressing is clean and dry. She is active motion of her hand and her wrist. She is wearing her sling as instructed.. Results & Data Results & Data Laboratory Results . Diagnostic Findings Postoperative x-rays of the right shoulder show the prosthesis to be in anatomic alignment without any evidence of fracture, screws, or loosening.. PG Care Time/CCT Total # of Minutes Spent Total Time Spent with Patient: Total time spent is greater than 50% in coordination of care (as documented) at patient's floor/unit and/or counseling patient: Coding Level of Care Code 47056 Post Operative Follow-Up Diagnoses Status post reverse total replacement of right shoulder Z96.611
--- NOTE | 2023-12-21 06:39 | Discharge Summary ---
Date of Service December 21, 2023 Admission HPI (Per Admitting) Zhanna is a pleasant 68-year-old female who has been dealing with chronic increasing right shoulder pain. She still works [employer] and should be retiring in about 2 years. 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 She has an MRI, which shows chronic rotator cuff tearing and some osteoarthritis. She has had injections, which have only given her minimal relief. She has done too extensive physical therapy. Unfortunately, she is still dealing with a lot of right shoulder pain. After failing conservative treatment, she has elected proceed with a right reverse shoulder arthroplasty. Admission Exam (Per Admitting) On physical examination the right shoulder, she has about 140 degrees of forward elevation and 120 degrees of abduction. She has a positive belly press test. She has 4-5 motor strength with full can testing.. Principal Diagnosis Same as "Discharge Diagnosis" noted below under Discharge Instructions. Discharge Exam On physical examination of the right shoulder, the dressing is clean and dry. She is active motion of her hand and her wrist. She is wearing her sling as instructed.. Discharge Data Procedures Performed Operation Date: 12/20/23 10:05 Actual Procedures p Right Reverse Total Shoulder Arthroplasty(Right) - Aaron Mayer DO Ordered Studies 12/20/23 05:00 US - OR guided needle placemen Routine Hospital Course (1) Status post reverse total replacement of right shoulder: On December 20, 2023 Zhanna arrived at [facility] and underwent a right reverse shoulder replaced without complication. She had a general anesthetic and a right interscalene nerve block. Postoperatively she was placed in a sling and transferred to the general orthopedic floors. Her hospital course was uneventful. On postop day #1, her vital signs were stable and her pain was well-controlled. She was able to participate well with physical therapy doing ambulation and range of motion exercises. She was then discharged home. She will follow-up orthopedics in 2 weeks. PG Care Time/CCT Total # of Minutes Spent Total Time Spent with Patient: Total time spent is greater than 50% in coordination of care (as documented) at patient's floor/unit and/or counseling patient: Discharge Plan Discharge Items Patient Disposition: Home - Self-Care Reason For Visit: Degenerative Joint Disease Shoulder Right Discharge Diagnosis: Right reverse shoulder replacement Activity: As commented below Non-emergency contact: Surgeon Call non-emergency contact if: your wound has increased redness and your wound has increased drainage Follow-up/Referrals: Valeria Francois MD [Primary Care Provider] - Diet: Regular Addtl Attending Provider Instructions: Activity and Therapy Recommendations: * If you are using [facility] then therapy will be provided at your home until they feel you have accomplished all of your goals. * If you are using [facility] then Physical Therapy will be provided until they feel you are ready to start Outpatient Physical Therapy. * If you are not using home therapy then Outpatient Physical Therapy should start about 3-5 days from your day of surgery. Therapy will last about 8-12 weeks * Wear your sling for 3 weeks, unless otherwise instructed. You may remove your sling to shower and to dress, but otherwise, you should be in your sling at all times, including while sleeping * The shoulder replacement is very stable and you can use your hand while in the sling * You were shown a series of exercises in the hospital. Do these exercises daily including the exercises you were shown in physical therapy. Medications: * Narcotic You will likely be sent home from the hospital with a prescription for the narcotic pain medication that worked best throughout your stay. * Cefadroxil -take the antibiotic twice a day for 10 days to help prevent infection. * Other medications may be prescribed for specific circumstances. If you have any questions, please call the office at . * Resume previous home medications unless otherwise instructed Dressing Care: Leave the Silverlon dressing in place for 7 days. After 7 days you may remove the dressing. If the incision is not draining then you may leave the fredy open to air. If there is a little bit of drainage or if the fredy are getting stuck on your clothing then cover the incision with a dry dressing. The fredy will be removed at your 2 week follow-up appointment. Showering: You may shower with the Silverlon dressing in place. Do not let the shower spray hit the dressing directly. Pat the Silverlon dressing dry. If the dressing becomes wet underneath, then simply remove the dressing. Keep the incision dry until you are 7 days out from the day of surgery. After 7 days you may remove the Silverlon dressing and shower with the fredy exposed. Let soapy water run over the fredy and pat them dry. Do not scrub or soak the incision. Things To Watch For: * Drainage from the incision site that occurs more than one week after your surgery. * Increased redness at the incision site. * Fever above 102 degrees Fahrenheit. * Unusual chest pain or shortness of breath. * Call [facility] at with any of the above problems Follow-Up Visit: Follow-up with Dr. Mayer's PA (Aaron Greene) 2-3 weeks after your day of surgery. He will remove your fredy and answer any questions. If you have any additional questions or concerns, Dr Mayer is usually in the office at the same time and will be available An appointment was probably scheduled when you signed-up for surgery in the office. If you have any questions call More detailed instructions as well as Frequently Asked Questions were provided in a folder by our office when you signed-up for surgery. Please review these instructions when you get home. If you have any further questions or concerns, please feel free to call the office at [phone] Pending Studies at Discharge: No Stand-Alone Forms: [facility] Medications and DC Order Prescriptions: New tramadol 50 mg tablet 50 mg PO Q6H PRN (Reason: pain) Qty: 30 0RF cefadroxil 500 mg capsule 500 mg PO BID 10 Days Qty: 20 0RF Continued insulin glargine [Lantus Solostar U-100 Insulin] 100 unit/mL (3 mL) insulin pen 30 unit SQ HS Qty: 15 3RF Farxiga 5 mg tablet 5 mg PO QAM Qty: 30 4RF amlodipine 10 mg tablet 10 mg PO QPM Qty: 90 1RF pen needle, diabetic [Unifine Pentips] 32 gauge x 5/32" needle See Rx Instructions .ROUTE .COMPLEX Qty: 100 5RF Dose Instruction: USE DAILY WITH BASAGLAR PEN. Rx Instructions: USE DAILY WITH BASAGLAR PEN. [id number]-ezwpvld-amxjwxan 50-325-40 mg capsule 1 - 2 cap PO UD PRN (Reason: Migraine Headache) Qty: 30 2RF (DME) OneTouch Ultra Blue Test Strip strip See Dose Instructions .ROUTE .MEDSUPPLY Qty: 10 Rx Instructions: As directed (DME) lancets [OneTouch Delica Lancets] 33 gauge misc See Dose Instructions .ROUTE .MEDSUPPLY Qty: 100 Rx Instructions: As directed acetaminophen [Acetaminophen Extra Strength] 500 mg Tablet 1,000 - 1,500 mg PO TID psyllium husk [Metamucil] 0.4 gram Capsule 0.4 g PO BID De3 Dry Eye [place] Benefits 800 mg-186.67 mg-8.33 mcg Capsule 1 cap PO QAM Cbd Liquid Extract 1 dose PO HS Cbd W/ Turmeric 1 dose PO QAM atorvastatin 20 mg tablet 20 mg PO QPM meloxicam 15 mg tablet 15 mg PO QAM Rx Instructions: TAKE 1 TABLET BY MOUTH DAILY WITH FOOD. lisinopril 20 mg tablet 20 mg PO QAM levothyroxine 75 mcg tablet 75 mcg PO QAM Rx Instructions: TAKE 1 TABLET BY MOUTH DAILY. bisoprolol fumarate 5 mg tablet 5 mg PO QAM metformin 1,000 mg tablet 1,000 mg PO BID Rx Instructions: TAKE 1 TABLET BY MOUTH TWICE DAILY Discharge Orders: Discharge Order (Routine); Ordered 12/21/23 Ordered By: Aaron Mayer Admission Data Admit Date/Time: 12/20/23 12:29 Attending Provider: Aaron Mayer Admit Provider: Aaron Mayer Primary Care Provider: Valeria Francois
[2023-12-21] MEDS: lisinopril 20 MG TAB PO SCH (07:29)
[2023-12-21] MEDS: MULTIVITAMIN TAB PO SCH (07:29)
[2023-12-21 07:41] VITALS: BP 138/75; RESP 18; TEMP 98.2; O2SAT 94
[2023-12-21 08:50] VITALS: PULSE 71
[2023-12-21] MEDS ORDERED: NON-FORMULARY MEDICATION (Dapagliflozin Propanediol [Farxiga] 5 mg tablet) PO SCH (09:00)
== END 2023-12-21 11:10 | disposition home or self-care (01) ==
LOC: ASU 08:26 → 3E 08:26